=== PATIENT | female | born 2000 | race Caucasian/White ===

== ENCOUNTER 2019-03-18 14:08 | Emergency (ER) | payer OTHER ==
[2019-03-18 14:42] LABS: Pregnancy Test - Urine (BHCG) Negative (Negative); Pregu Control Background? CLEAR/WHITE (CLR/WHITE); Pregu Control Bar Appear? YES (CONTROL BAR); Specific Gravity 1.023 (1.002-1.036)
[2019-03-18] MEDS ORDERED: Ibuprofen 800 MG TAB ONE (15:10)
[2019-03-18] MEDS ORDERED: Acetaminophen 500 MG TAB ONE (15:10)
[2019-03-18] MEDS ORDERED: Bacitracin Zinc 1 Packet ONE (15:10)
--- NOTE | 2019-03-18 15:11 | RAD ---
RIGHT HAND RADIOGRAPHS THREE VIEWS: 03/18/2019 PROVIDED CLINICAL HISTORY: Trauma. FINDINGS: There is a small radiodensity projecting in the soft tissues at the dorsal aspect of the hand, at the level of the metacarpals on the lateral view, not definitely localized on the additional projections . This could reflect artifact, radiopaque foreign body, or an avulsion type injury from the bone. A lignment appears anatomic. Joint spaces appear preserved. IMPRESSION: Density at the dorsum of the hand, as above. POS: OFF
== END 2019-03-18 16:00 | disposition home or self-care (01) ==
LOC: MADERS 14:08
DX: S63.91XA Sprain of unspecified part of right wrist and hand, initial encounter (principal); L03.113 Cellulitis of right upper limb; Z79.899 Other long term (current) drug therapy; V89.2XXA Person injured in unspecified motor-vehicle accident, traffic, initial encounter
CPT/HCPCS: 81025